=== PATIENT | female | born 1980 | race Caucasian/White ===

== ENCOUNTER 2017-02-10 17:59 | Emergency (ER) | payer MEDICAID ==
[2017-02-10 18:12] VITALS: TEMP 99.1
[2017-02-10 18:18] VITALS: BMI 22.3
--- NOTE | 2017-02-10 18:38 | ED PDOC ---
Arrival/HPI - General Chief Complaint: Abnormal Skin Integrity Time Seen by Provider: 02/10/17 18:29 Historian: Patient - History of Present Illness Narrative History of Present Illness (Text): 02/10/17 18:34 36yo female present with laceration to her right volar hand. States she sustained the laceration when she banged on a window, the window broke and cut her hand. States she was trying to call her children. Notes her last TD vaccine was within the last 5 years. Past Medical History - Provider Review Nursing Documentation Reviewed: Yes - Psychiatric Hx Psychophysiologic Disorder: No Hx Substance Use: No - Surgical History Hx Tubal Ligation: Yes Family/Social History - Physician Review Nursing Documentation Reviewed: Yes Family/Social History: Unknown Family HX Smoking Status: Never Smoked Hx Alcohol Use: No Hx Substance Use: No Allergies/Home Meds Allergies/Adverse Reactions: Allergies No Known Allergies Allergy (Verified 02/10/17 18:08) Review of Systems - Physician Review All systems were reviewed & negative as marked: Yes - Review of Systems Constitutional: Normal Eyes: Normal ENT: Normal Respiratory: Normal Cardiovascular: Normal Gastrointestinal: Normal Genitourinary Female: Normal Musculoskeletal: Normal Skin: Laceration (Right hand laceration) Neurological: Normal Endocrine: Normal Hemo/Lymphatic: Normal Psychiatric: Normal Physical Exam Vital Signs Reviewed: Yes Vital Signs Temp Pulse Resp BP Pulse Ox 02/10/17 18:37 99.1 F 83 18 115/71 100 02/10/17 18:08 99.1 F 83 16 115/71 97 Temperature: Afebrile Blood Pressure: Normal Pulse: Regular Respiratory Rate: Normal Appearance: Positive for: Well-Appearing, Non-Toxic, Comfortable Pain Distress: None Mental Status: Positive for: Alert and Oriented X 3 - Systems Exam Head: Present: Atraumatic, Normocephalic Pupils: Present: PERRL Extroacular Muscles: Present: EOMI Conjunctiva: Present: Normal Mouth: Present: Moist Mucous Membranes Neck: Present: Normal Range of Motion Respiratory/Chest: Present: Clear to Auscultation, Good Air Exchange. No: Respiratory Distress, Accessory Muscle Use Cardiovascular: Present: Regular Rate and Rhythm, Normal S1, S2. No: Murmurs Abdomen: Present: Normal Bowel Sounds. No: Tenderness, Distention, Peritoneal Signs Back: Present: Normal Inspection Upper Extremity: Present: Normal Inspection. No: Cyanosis, Edema Lower Extremity: Present: Normal Inspection. No: Edema Neurological: Present: GCS=15, CN II-XII Intact, Speech Normal Skin: Present: Warm, Dry, Normal Color, Laceration (3.0cm linear laceration to volar right hand. FROM. No tendon involvement). No: Rashes Psychiatric: Present: Alert, Oriented x 3, Normal Insight, Normal Concentration Procedure: Wound Repair - Time Performed Time Performed: 19:00 - Consent Obtained Consent obtained: Verbal - Performed by Performed by: Mid-level Provider - Indications Indication(s):: Laceration - Location Location:: Right, Hand Shape:: Linear Dimensions Length cm: 3.0 - Anesthetic Technique Local/Regional Anesthetic:: Lidocaine 1% (5ml) - Debris Debris:: None - Irrigated Irrigated with ml of normal saline: 40 - Complexity Complexity:: Intermediate (2 layer) - Muscle repiar layer closed with Muscle repair layer closed with:: # (14), Size (5), Type (absorbable/nylon), Technique (interrupted), Wound well approximated, Abx ointment applied, Dressing applied, Tetanus up to date - Patient tolerated procedure Patient Tolerated Procedure:: Well Disposition/Present on Arrival - Present on Arrival Any Indicators Present on Arrival: No History of DVT/PE: No History of Uncontrolled Diabetes: No Urinary Catheter: No History of Decub. Ulcer: No History Surgical Site Infection Following: None - Disposition Have Diagnosis and Disposition been Completed?: Yes Diagnosis: Hand laceration Disposition: HOME/ ROUTINE Disposition Time: 19:20 Patient Plan: Discharge Patient Problems: Current Active Problems Problem Status Onset Hand laceration Acute Condition: STABLE Discharge Instructions (ExitCare): Laceration (ED) Additional Instructions: Keep wound clean and dry Follow up with your Doctor in 7 to days for suture removal Return to ED for redness, discharge from wound or any new symptoms Prescriptions: Cephalexin [cephalexin] 500 mg PO TID #21 cap Ref[place] [facility] [place] [facility] [place] Follow up with primary Forms: [employer] (Welsh), WORK NOTE
[2017-02-10 18:50] VITALS: O2SAT 100
[2017-02-10] MEDS ORDERED: Lidocaine 1% Inj (20ml) ONE (19:01)
[2017-02-10 19:28] VITALS: BP 116/87; PULSE 79; RESP 16
== END 2017-02-10 19:26 | disposition home or self-care (01) ==
LOC: MERGE 17:59 → ED 17:59
DX: S61.411A Laceration without foreign body of right hand, initial encounter (principal); W25.XXXA Contact with sharp glass, initial encounter